=== PATIENT | female | born 1990 | race Caucasian/White ===

== ENCOUNTER 2016-11-26 14:05 | Emergency (ER) | payer OTHER ==
[~2016-11-26] VITALS: Ht 170.2 cm; Wt 67.0 kg
[2016-11-26 14:09] VITALS: TEMP 36.9; Ht 170.2 cm; Wt 67.0 kg
[2016-11-26] MEDS ORDERED: SODIUM CHLORIDE 0.9% 1000ML 1,000 ML IV ONE (14:31)
[2016-11-26] MEDS ORDERED: SODIUM CHLORIDE 0.9% 1000ML 1,000 ML IV STA (14:31)
[2016-11-26] MEDS ORDERED: KETOROLAC TROMETHAMINE 30 MG/ML VIAL IV STA (14:31)
[2016-11-26] MEDS ORDERED: AZITTAB PO (14:52)
[2016-11-26] MEDS ORDERED: GUAI1SOL5 PO (14:52)
[2016-11-26 14:58] LABS: BASO % 0.5 %; BASO ABS # 0.04 K/uL (0-0.2); COMPLETE YES; EOS % 3.4 %; HEMATOCRIT 43.6 % (37-47); IG% 0.2 %; LYMPH % 21.6 %; LYMPH ABS # 1.83 K/uL (1.2-3.4); MEAN CELL VOLUME 87.6 fL (80-100); MEAN CORPUSCULAR HEMOGLOBIN 31.9 pg (25-34); MEAN CORPUSCULAR HGB CONC 36.5 g/dl (32-36); MEAN PLATELET VOLUME 9.8 fL (7.4-10.4); MONO % 8.2 %; NEUT % 66.1 %; PLATELET COUNT 249 K/uL (130-400); RED BLOOD COUNT 4.98 M/uL (4.2-5.4); WHITE BLOOD COUNT 8.49 K/uL (4.8-10.8)
--- NOTE | 2016-11-26 15:15 | DIAGNOSTIC IMAGING REPORT ---
CHEST ONE VIEW PORTABLE CLINICAL HISTORY: Chest pain and cough. COMPARISON STUDY: No previous studies for comparison. FINDINGS: Lung volumes are normal. Lungs are clear. There is no pneumothorax or pleural effusion. Cardiac size is normal. Mediastinal contours are normal. There is no evidence of pulmonary edema. Suspected left upper quadrant surgical clips are noted. IMPRESSION: No acute cardiopulmonary findings. Electronically signed by: Phani Bray M.D. 11/26/2016 3:13 PM Dictated Date/Time: 11/26/2016 3:13 PM
[2016-11-26 15:16] LABS: BUN/CREATININE RATIO 11.5 (10-20); CALCIUM 9.4 mg/dl (8.5-10.1); CREATININE 0.77 mg/dl (0.60-1.20); POTASSIUM 3.8 mmol/L (3.5-5.1)
[2016-11-26 15:33] LABS: PREG INTERNAL NEGATIVE QC NEG CLEAR BACKGROUND; PREG INTERNAL POSITIVE QC POS CONTROL LINE
[2016-11-26 16:11] VITALS: BP 119/71; PULSE 95; O2SAT 99
--- NOTE | 2016-11-26 19:59 | EMERGENCY ROOM VISIT NOTE ---
History Report prepared by John: Chelly Grullon Under the Supervision of: Dr. Dionte Martinez M.D. First contact with patient: 14:21 Chief Complaint: FLU LIKE SX Stated Complaint: CHEST PAINS WHEN BREATHING, COUGH, HEADACHE, History of Present Illness The patient is a 26 year old female who presents to the Emergency Room with complaints of worsening flu-like symptoms that started about 2 weeks ago. The patient states that her symptoms started with fatigue, a cough, and sore throat. She went to Urgent Care 3 days ago because the cough was worse and she was experiencing shortness of breath from the cough. She was diagnosed with bronchitis and started on a z-pack. Since then, the cough has gotten worse and it is occasionally productive. She is still experiencing shortness of breath with coughing. Additionally, she is experiencing a headache, generalized body aches, and she states that her "skin hurts to touch." She is also experiencing right-sided chest pain with deep breaths. She denies recent travel and pain or swelling with her legs. She denies abdominal pain and any history of asthma. The patient received a flu shot this year and states that her vaccines are up to date. 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 Source of History: patient, spouse/significant other Onset: 2 weeks ago Position: other (generalized) Quality: other (flu-like symptoms) Timing: worsening Associated Symptoms: + SOB, + chest pain (right-sided with deep breaths), + cough, + headache, + sorethroat, No abdominal pain Note: generalized body aches, skin "hurts to touch" Review of Systems See HPI for pertinent positives & negatives. A total of 10 systems reviewed and were otherwise negative. Past Medical & Surgical Medical Problems: (1) Ovarian cyst Surgical Problems: (1) History of gastric bypass (2) History of removal of ovarian cyst Old medical records were reviewed. Nurse's notes were reviewed and I agree with. Family History FH: heart disease FH: lung disease FHx: cancer Hypertension Kidney disease Kidney stones Social History Smoking Status: Never Smoker Smokeless Tobacco Use: No Alcohol Use: occasionally Drug Use: none Marital Status: in relationship Housing Status: lives with significant other Occupation Status: employed Current/Historical Medications Scheduled Azithromycin (Zithromax Z-Moe), 1 PKT PO UD Control Pills ( Control Pills), 1 TAB PO DAILY Scheduled PRN Guaifenesin-Codeine (Codeine/Guaifenesin 100-10 mg/5Ml), 1 TSP PO DIRECTED PRN for Cough Allergies Coded Allergies: No Known Allergies (Unverified , 11/26/16) Physical Exam Vital Signs Date Time Temp Pulse Resp B/P Pulse Ox O2 Delivery O2 Flow Rate FiO2 11/26/16 16:11 95 18 119/71 99 Room Air 11/26/16 14:09 36.9 106 18 125/86 99 Room Air Physical Exam General: Well developed well nourished non-ill appearing young female in no acute distress, intermittent hacking cough, breathing comfortably on room air, no respiratory distress. Normal speech HEENT: Normal cephalic atraumatic. Pupils are equal round and reactive to light. Sclerae anicteric. Extraocular movements are intact. Oropharynx is pink with moist mucous membranes. No swelling of the mouth lips or tongue. Neck: Supple with a midline trachea. No meningeal signs or stiffness, no JVD or bruits. No Stridor. Negative Kernig and Brudzinski sign. Chest: Pain on right side with breathing. Clear to auscultation bilaterally. No wheezes or rhonchi. No increased work of breathing. No respiratory distress. Heart: regular rate and rhythm. Abdomen: Soft nontender, nondistended without rebound guarding or rigidity. Extremities: No cyanosis clubbing or edema. No calf tenderness or assymetry Spine/Back. Non tender to palpation. No CVA tenderness Skin: Good turgor without rashes. Neurologic exam: Cranial nerves two through 12 are intact. Motor and sensation are intact and symmetrical throughout. Medical Decision & Procedures ER Provider Diagnostic Interpretation: X-ray results as stated below per interpretation by me and the radiologist: CHEST ONE VIEW PORTABLE IMPRESSION: No acute cardiopulmonary findings. Electronically signed by: Phani Bray M.D. 11/26/2016 3:13 PM Dictated Date/Time: 11/26/2016 3:13 PM Laboratory Results 11/26/16 14:45 Red Blood Count 4.98, Mean Corpuscular Volume 87.6, Mean Corpuscular Hemoglobin 31.9, Mean Corpuscular Hemoglobin Concent 36.5, Mean Platelet Volume 9.8, Neutrophils (%) (Auto) 66.1, Lymphocytes (%) (Auto) 21.6, Monocytes (%) (Auto) 8.2, Eosinophils (%) (Auto) 3.4, Basophils (%) (Auto) 0.5, Neutrophils # (Auto) 5.61, Lymphocytes # (Auto) 1.83, Monocytes # (Auto) 0.70, Eosinophils # (Auto) 0.29, Basophils # (Auto) 0.04 11/26/16 14:45 Test 11/26/16 14:45 11/26/16 14:49 White Blood Count 8.49 K/uL (4.8-10.8) Red Blood Count 4.98 M/uL (4.2-5.4) Hemoglobin 15.9 g/dL (12.0-16.0) Hematocrit 43.6 % (37-47) Mean Corpuscular Volume 87.6 fL (80-100) Mean Corpuscular Hemoglobin 31.9 pg (25-34) Mean Corpuscular Hemoglobin Concent 36.5 g/dl (32-36) Platelet Count 249 K/uL (130-400) Mean Platelet Volume 9.8 fL (7.4-10.4) Neutrophils (%) (Auto) 66.1 % Lymphocytes (%) (Auto) 21.6 % Monocytes (%) (Auto) 8.2 % Eosinophils (%) (Auto) 3.4 % Basophils (%) (Auto) 0.5 % Neutrophils # (Auto) 5.61 K/uL (1.4-6.5) Lymphocytes # (Auto) 1.83 K/uL (1.2-3.4) Monocytes # (Auto) 0.70 K/uL (0.11-0.59) Eosinophils # (Auto) 0.29 K/uL (0-0.5) Basophils # (Auto) 0.04 K/uL (0-0.2) RDW Standard Deviation 36.6 fL (36.4-46.3) RDW Coefficient of Variation 11.5 % (11.5-14.5) Immature Granulocyte % (Auto) 0.2 % Immature Granulocyte # (Auto) 0.02 K/uL (0.00-0.02) Anion Gap 8.0 mmol/L (3-11) Est Creatinine Clear Calc Drug Dose 109.6 ml/min Estimated GFR () 125.3 Estimated GFR (Non- 108.1 BUN/Creatinine Ratio 11.5 (10-20) Calcium Level 9.4 mg/dl (8.5-10.1) Human Chorionic Gonadotropin, Qual NEG (NEG) Influenza Type A Antigen Neg for Influ A (NEG) Influenza Type B Antigen Neg for Influ B (NEG) Bedside D-Dimer 224 ng/mlFEU (0-450) Laboratory studies as stated above per my review. Medications Administered Medications (Trade) Dose Ordered Sig/Nohelia Route Start Time Stop Time Status Last Admin Dose Admin Sodium Chloride (Nss 1000ml) 1,000 ml @ 999 mls/hr Q1H1M STAT IV 11/26/16 14:31 11/26/16 15:31 DC 11/26/16 14:54 999 MLS/HR Ketorolac Tromethamine (Toradol Inj) 30 mg NOW STAT IV 11/26/16 14:31 11/26/16 14:33 DC 11/26/16 14:54 30 MG ED Course 1423: Past medical records reviewed. The patient was evaluated in room A3, and a complete history and physical examination were performed. 1431: Ordered Toradol 30 mg IV, Sodium Chloride 1000 ml @ 999 mls/hr IV 1509: I reassessed the patient. They were taking her chest x-ray. 1615: Upon reevaluation, the patient is doing well. I discussed the results and treatment plan with her. She verbalized agreement of the treatment plan. The patient was discharged home. Medical Decision Differentials include, but are not limited to; bronchitis, influenza, pneumonia , pertussis, electrolyte or metabolic abnormality. This patient comes in as described above. She was placed in room A3. She is here for treatment and evaluation of influenza-like illness. She's also had bronchitis and URI type symptoms. She was started on Z-Moe. These symptoms have been going on for 3 days and in fact prior that she's been having a mild cough for a week or 2. She looks well on exam. She's not hypoxemic. She is nontoxic and non-lethargic. She is well-hydrated appearing. IV access established. She was hydrated with IV normal saline. Multiple blood tests was obtained. She had a chest x-ray which does not show any acute infiltrate failure or pneumothorax or influenza swab was negative. Her d-dimer was within normal limits and in the low pretest probability study makes PE highly unlikely. She's had no elevation of white count. She is not . She's had no acute electrolyte or metabolic abnormalities. She feels good and would like to go home. I do think she has a bronchitis and viral type illness. At this point, she is out of the window for Tamiflu. Since she started the azithromycin, I would finish this this will cover the possibility of pertussis as well. She should rest and drink plenty fluids return if: Worsening of symptoms, fever or chills, any new problems or concerns and follow up with her regular doctor this week for recheck. They're happy with the plan and she was discharged to home. Impression Primary Impression: Influenza-like illness Additional Impression: Bronchitis Scribe Attestation The scribe's documentation has been prepared under my direction and personally reviewed by me in its entirety. I confirm that the note above accurately reflects all work, treatment, procedures, and medical decision making performed by me. Departure Information Dispostion Home / Self-Care Referrals No Doctor, Assigned (PCP) Forms HOME CARE DOCUMENTATION FORM, IMPORTANT VISIT INFORMATION Patient Instructions A Signature Page, [facility] Additional Instructions Rest. Finish your antibiotics. Return if: Worsening symptoms, fever chills, any new problems concerns. Follow-up with your doctor for recheck.
[2016-12-06] MEDS ORDERED: BCPILLS PO (14:52)
== END 2016-11-26 16:23 | disposition home or self-care (01) ==
LOC: C.EDB 14:08 → C.EDA 16:23
DX: J40 Bronchitis, not specified as acute or chronic (principal)

== ENCOUNTER 2016-12-06 15:55 | Emergency (ER) | payer OTHER ==
[~2016-12-06] VITALS: Ht 170.2 cm; Wt 67.7 kg
[~2016-12-06 15:55] MED LIST: AZITTAB PO; BCPILLS PO; GUAI1SOL5 PO
[2016-12-06 16:04] VITALS: TEMP 36.8; Ht 170.2 cm; Wt 67.7 kg
[2016-12-06] MEDS ORDERED: SODIUM CHLORIDE 0.9% 1000ML 1,000 ML IV ONE ×2 (16:30→18:15)
[2016-12-06] MEDS ORDERED: ONDANSETRON INJ 2 MG/ML 2 ML VIAL IV STA (16:38)
[2016-12-06] MEDS ORDERED: MoRPHine SULFATE 4 MG/ML 1 ML CARP\\VIAL IV STA (16:38)
[2016-12-06] MEDS ORDERED: IBUP-1050 PO (16:42)
--- NOTE | 2016-12-06 16:48 | EMERGENCY ROOM VISIT NOTE ---
History First contact with patient: 16:14 Chief Complaint: ABDOMINAL PAIN Stated Complaint: UPPER MIDDLE ABD AND BACK PAIN Nursing Triage Summary: Pt c/o upper mid abd pain into her back since noon today. Nausea History of Present Illness The patient is a 26 year old female who presents to the Emergency Room with complaints of sudden onset epigastric pain. 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 The pain was described as a "sharp/shooting pain" that also occurred at the same level in the back. The pain was constant and non-positional. At its onset, the pain was 3/10; it did go as high as 9/10; is currently 7/10. The pain is not associated with food. She did try taking Ibuprofen one time this afternoon, which did not help. She did have nausea, but has not vomited. She denies diarrhea or constipation. She has been urinating without difficulty. She denies fevers, chills, nightsweats. She notes only mild SOB but no chest pain, no palpitations. She has mild lightheadedness without syncope. Review of Systems Complete review of systems was otherwise negative Past Medical/Surgical History Medical Problems: (1) Ovarian cyst Surgical Problems: (1) History of gastric bypass (2) History of removal of ovarian cyst Family History FH: heart disease FH: lung disease FHx: cancer Hypertension Kidney disease Kidney stones Social History Smoking Status: Never Smoker Smokeless Tobacco Use: No Alcohol Use: none Drug Use: none Marital Status: in relationship Housing Status: lives with significant other Occupation Status: employed Current/Historical Medications Scheduled Control Pills ( Control Pills), 1 TAB PO DAILY Ibuprofen (Advil), 400 MG PO PRN UD Allergies Coded Allergies: No Known Allergies (Unverified , 12/06/16) Physical Exam Vital Signs Date Time Temp Pulse Resp B/P Pulse Ox O2 Delivery O2 Flow Rate FiO2 12/06/16 17:49 60 18 102/63 99 Room Air 12/06/16 16:28 71 12/06/16 16:04 36.8 83 16 146/105 98 Room Air Pain Rating (0-10): 7 Physical Exam Constitutional: Vital signs as above were reviewed. Eyes: Pupils equal, round, and reactive to light. Extraocular muscles are intact. No proptosis. No photophobia. ENT: Mucous membranes are moist. Oropharynx is clear. No sinus tenderness. TMs are clear bilaterally. Cardiovascular: Heart with a regular rate and rhythm. Pulses are palpable and symmetric in all 4 extremities. No pedal edema appreciated. Respiratory: Lungs clear to auscultation bilaterally. No wheezes, rales, or rhonchi appreciated. No accessory muscle use. No retractions. No increased work of breathing. GI: Diffuse abdominal tenderness, worse centrally and epigastric. Negative Briggs's sign. Normal bowel sounds in 4 quadrants : No CVA tenderness appreciated. Musculoskeletal: No midline cervical or vertebral tenderness. No gross deformities. No bony tenderness. No calf swelling or tenderness. Integumentary: Warm, dry, no rashes appreciated. Neurological: Patient awake, alert, and oriented x 3. Cranial nerves two through 12 grossly intact. Motor 5 out of 5 strength bilateral upper and lower extremities. Lymph: No cervical lymphadenopathy appreciated. Medical Decision & Procedures ER Provider Diagnostic Interpretation: ABDOMINAL ULTRASOUND, RIGHT UPPER QUADRANT HISTORY: epigastric/RUQ pain. COMPARISON: None. FINDINGS: Pancreas: The pancreas demonstrates a normal echotexture. Liver: Unremarkable. Gallbladder: No gallbladder wall thickening. No gallstones. CBD: 5 mm. Right kidney: No hydronephrosis. IMPRESSION: No significant abnormality identified within the right upper quadrant. Laboratory Results 12/06/16 16:15 Red Blood Count 4.89, Mean Corpuscular Volume 87.5, Mean Corpuscular Hemoglobin 31.5, Mean Corpuscular Hemoglobin Concent 36.0, Mean Platelet Volume 9.5, Neutrophils (%) (Auto) 36.5, Lymphocytes (%) (Auto) 53.9, Monocytes (%) (Auto) 7.8, Eosinophils (%) (Auto) 1.2, Basophils (%) (Auto) 0.5, Neutrophils # (Auto) 2.67, Lymphocytes # (Auto) 3.95, Monocytes # (Auto) 0.57, Eosinophils # (Auto) 0.09, Basophils # (Auto) 0.04 12/06/16 16:15 Test 12/06/16 16:15 White Blood Count 7.33 K/uL (4.8-10.8) Red Blood Count 4.89 M/uL (4.2-5.4) Hemoglobin 15.4 g/dL (12.0-16.0) Hematocrit 42.8 % (37-47) Mean Corpuscular Volume 87.5 fL (80-100) Mean Corpuscular Hemoglobin 31.5 pg (25-34) Mean Corpuscular Hemoglobin Concent 36.0 g/dl (32-36) Platelet Count 383 K/uL (130-400) Mean Platelet Volume 9.5 fL (7.4-10.4) Neutrophils (%) (Auto) 36.5 % Lymphocytes (%) (Auto) 53.9 % Monocytes (%) (Auto) 7.8 % Eosinophils (%) (Auto) 1.2 % Basophils (%) (Auto) 0.5 % Neutrophils # (Auto) 2.67 K/uL (1.4-6.5) Lymphocytes # (Auto) 3.95 K/uL (1.2-3.4) Monocytes # (Auto) 0.57 K/uL (0.11-0.59) Eosinophils # (Auto) 0.09 K/uL (0-0.5) Basophils # (Auto) 0.04 K/uL (0-0.2) RDW Standard Deviation 37.3 fL (36.4-46.3) RDW Coefficient of Variation 11.8 % (11.5-14.5) Immature Granulocyte % (Auto) 0.1 % Immature Granulocyte # (Auto) 0.01 K/uL (0.00-0.02) Anion Gap 7.0 mmol/L (3-11) Est Creatinine Clear Calc Drug Dose 105.5 ml/min Estimated GFR () 119.6 Estimated GFR (Non- 103.2 BUN/Creatinine Ratio 15.5 (10-20) Calcium Level 9.1 mg/dl (8.5-10.1) Total Bilirubin 0.4 mg/dl (0.2-1) Aspartate Amino Transf (AST/SGOT) 12 U/L (15-37) Alanine Aminotransferase (ALT/SGPT) 27 U/L (12-78) Alkaline Phosphatase 59 U/L (45-117) Total Protein 8.0 gm/dl (6.4-8.2) Albumin 4.3 gm/dl (3.4-5.0) Globulin 3.7 gm/dl (2.5-4.0) Albumin/Globulin Ratio 1.2 (0.9-2) Lipase 158 U/L (73-393) Medications Administered Medications (Trade) Dose Ordered Sig/Nohelia Route Start Time Stop Time Status Last Admin Dose Admin Sodium Chloride (Nss 1000ml) 1,000 ml @ 999 mls/hr Q1H1M ONCE IV 12/06/16 16:30 12/06/16 17:30 DC 12/06/16 16:40 999 MLS/HR Morphine Sulfate (MoRPHine SULFATE INJ) 4 mg NOW STAT IV 12/06/16 16:38 12/06/16 16:40 DC 12/06/16 16:57 4 MG Ondansetron HCl 4 mg 4 mg NOW STAT IV 12/06/16 16:38 12/06/16 16:40 DC 12/06/16 16:57 4 MG Sodium Chloride (Nss 1000ml) 1,000 ml @ 999 mls/hr Q1H1M ONCE IV 12/06/16 18:15 12/06/16 19:15 12/06/16 18:26 999 MLS/HR ED Course 16:15 - Patient seen and assessed [place]: CBC, CMP, Lipase 1 L NSS bolus 16:40 - Discussed case with attending physician, Dr. Ari Zhang Additional orders placed: Gallbladder U/S; 4 mg Morphine IV one; 4 mg Zofran IV one 17:40 - Re-assessed patient; patient doing slightly better than on arrival Reviewed normal labs and normal GB ultrasound Will give additional 1 L NSS bolus 18:15 - Discussed discharge with patient at follow up in 24-48 hours with PCP to ensure resolution of symptoms Patient agreeable to plan Second 1 L NSS running 18:40 - Discharge completed; patient to be discharged once NSS infusion completed [place] Drug Monitoring Program Drug Monitoring Findings: Patient presents with epigastric pain. Differential includes cholecystitis, pancreatitis, gastritis, PUD Reviewed labs. There is no evidence of infection or anemia. Reviewed CMP. No evidence of renal dysfunction, hepatic dysfunction or pancreatitis US gallbladder was normal. Patient hemodynamically stable throughout hospital course. Patient received 2 L NSS and 4 mg Morphine. Insidious etiologies unlikely at this time. She may some component of esophageal spasm or gastritis. My recommendation would be outpatient obervation and close follow-up with a PCP. Patient to be discharged with home packs for Zofran and Oxycodone. Patient also advised to try OTC PPI for coverage of possible gastritis. At discharge patient doing well and discharged in stable condition. Impression Primary Impression: Epigastric pain Ruled Out: Cholecystitis, Pancreatitis Departure Information Dispostion Home / Self-Care Condition GOOD Referrals No Doctor, Assigned (PCP) Patient Instructions [facility]
[2016-12-06 16:51] LABS: HEMATOCRIT 42.8 % (37-47); MEAN CELL VOLUME 87.5 fL (80-100); MEAN CORPUSCULAR HEMOGLOBIN 31.5 pg (25-34); MEAN PLATELET VOLUME 9.5 fL (7.4-10.4); PLATELET COUNT 383 K/uL (130-400); RED BLOOD COUNT 4.89 M/uL (4.2-5.4); WHITE BLOOD COUNT 7.33 K/uL (4.8-10.8)
[2016-12-06 17:08] LABS: BASO % 0.5 %; BASO ABS # 0.04 K/uL (0-0.2); COMPLETE YES; EOS % 1.2 %; IG% 0.1 %; LYMPH % 53.9 %; LYMPH ABS # 3.95 K/uL (1.2-3.4); MONO % 7.8 %; NEUT % 36.5 %
[2016-12-06 17:15] LABS: BUN/CREATININE RATIO 15.5 (10-20); CALCIUM 9.1 mg/dl (8.5-10.1); CREATININE 0.8 mg/dl (0.60-1.20); POTASSIUM 3.5 mmol/L (3.5-5.1)
[2016-12-06 17:18] LABS: ALB/GLOB RATIO 1.2 (0.9-2)
--- NOTE | 2016-12-06 17:58 | DIAGNOSTIC IMAGING REPORT ---
ABDOMINAL ULTRASOUND, RIGHT UPPER QUADRANT HISTORY: epigastric/RUQ pain. COMPARISON: None. FINDINGS: Pancreas: The pancreas demonstrates a normal echotexture. Liver: Unremarkable. Gallbladder: No gallbladder wall thickening. No gallstones. CBD: 5 mm. Right kidney: No hydronephrosis. IMPRESSION: No significant abnormality identified within the right upper quadrant. Electronically signed by: Gerald Galvez M.D. 12/06/2016 5:56 PM Dictated Date/Time: 12/06/2016 5:55 PM
[2016-12-06] MEDS ORDERED: OXYCODONE IR HOME PACK PO ONE (18:45)
[2016-12-06] MEDS ORDERED: ONDANSETRON HOME PACK 4MG OD TAB PO ONE (18:45)
[2016-12-06 19:47] VITALS: BP 106/64; PULSE 69; O2SAT 99
--- NOTE | 2016-12-06 21:49 | EMERGENCY ROOM VISIT NOTE ---
ED Visit Note First contact with patient: 16:14 Resident Physician Supervision Note: Dr. Suarez was resident physician during care of patient. I separately evaluated patient and did history and exam. I discussed the case with the resident and generally agree with the findings and plan. 26 yr old female several years post gastric bypass without GB removal. She notes sudden onset epigastric discomfort after eating lunch. Exam is benign other than some mild epigastric TTP without rebound and not surgical. US unremarkable of GB. Labs unremarkable. With history I do not feel that emergent CT indicated at this time. Could be some gastritis or possible reaction to food she was eating. I do not feel there is Cholecystitis, Hepatic Disfunction, Pancreatitis, ACS, Aortic Pathology. Stable and will d/c home with plan to [facility] if worsening or other concerns. Diagnosis: Acute epigastric abdominal pain Documented By: Cb Zhang MD
== END 2016-12-06 19:49 | disposition home or self-care (01) ==
LOC: C.EDB 15:57 → C.EDC 19:49
DX: R10.13 Epigastric pain (principal); Z98.84 Bariatric surgery status; Z82.49 Family history of ischemic heart disease and other diseases of the circulatory system; Z84.1 Family history of disorders of kidney and ureter

== ENCOUNTER → 2016-12-10 | Outpatient (CLI) | payer OTHER ==
[~2016-12-10] MED LIST changes: -AZITTAB PO; -GUAI1SOL5 PO; +IBUP-1050 PO
== END | disposition home or self-care (01) ==
LOC: C.LAB1850 07:18
PROVIDERS: ATTEND Internal Medicine Geriatric Medicine
DX: R10.13 Epigastric pain (principal)

== ENCOUNTER → 2017-08-01 | Outpatient (CLI) | payer OTHER ==
[2017-08-01 17:18] LABS: HEMATOCRIT 41.2 % (37-47); MEAN CELL VOLUME 89.2 fL (80-100); MEAN CORPUSCULAR HGB CONC 34.7 g/dl (32-36); MEAN PLATELET VOLUME 9.7 fL (7.4-10.4); PLATELET COUNT 281 K/uL (130-400); RED BLOOD COUNT 4.62 M/uL (4.2-5.4); WHITE BLOOD COUNT 8.99 K/uL (4.8-10.8)
[2017-08-01 17:45] LABS: BLOOD UREA NITROGEN 15 mg/dl (7-18); CALCIUM 9.3 mg/dl (8.5-10.1); CARBON DIOXIDE 30 mmol/L (21-32); CHLORIDE 105 mmol/L (98-107); GLUCOSE 86 mg/dl (70-99); POTASSIUM 3.6 mmol/L (3.5-5.1); SODIUM 138 mmol/L (136-145)
[2017-08-01 17:56] LABS: THYROID STIMULATING HORMONE 0.911 uIu/ml (0.300-4.500)
== END | disposition home or self-care (01) ==
LOC: C.LAB1850 16:30
PROVIDERS: ATTEND Physician Assistant
DX: R53.83 Other fatigue (principal)